=== PATIENT | female | born 1985 | race Caucasian/White ===

== ENCOUNTER 2017-05-31 11:12 | Emergency (ER) | payer OTHER ==
[~2017-05-31] VITALS: Ht 157.5 cm; Wt 66.7 kg
[2017-05-31 11:20] VITALS: BP 116/58
[2017-05-31] MEDS ORDERED: PRED20TA PO (11:38)
--- NOTE | 2017-05-31 11:38 | PHYS DOC ---
Adult General Chief Complaint Chief Complaint: SKIN RASH/ABSCESS HPI HPI Patient is a 32 year old female presents emergency department stating that she has a rash on her face that developed approximately 3 or 4 days ago. She's been taken some Benadryl at night to help with the irritation and itching. She denies any drainage or discharge coming from the site. She does state that she' s been using new laundry detergent new soaps as she is traveling. She also states that she has been camping. She denies fever, chills or any nausea vomiting. She denies any shortness of air. Review of Systems Review of Systems Constitutional: Denies fever or chills [] Eyes: Denies change in visual acuity, redness, or eye pain [] HENT: Denies nasal congestion or sore throat [] Respiratory: Denies cough or shortness of breath [] Cardiovascular: No additional information not addressed in HPI [] GI: Denies abdominal pain, nausea, vomiting, bloody stools or diarrhea [] : Denies dysuria or hematuria [] Musculoskeletal: Denies back pain or joint pain [] Integument: rash denies skin lesions [] Neurologic: Denies headache, focal weakness or sensory changes [] Endocrine: Denies polyuria or polydipsia [] Physical Exam Physical Exam Constitutional: Well developed, well nourished, no acute distress, non-toxic appearance. [] HENT: Normocephalic, atraumatic, bilateral external ears normal, oropharynx moist, no oral exudates, nose normal. [] Eyes: PERRLA, EOMI, conjunctiva normal, no discharge. [] Neck: Normal range of motion, no tenderness, supple, no stridor. [] Cardiovascular:Heart rate regular rhythm, no murmur [] Lungs & Thorax: Bilateral breath sounds clear to auscultation [] Skin: Warm, dry, no erythema, patient with rash noted on her face. It appears just to be a red area no raised areas noted no drainage or discharge noted. Back: No tenderness Extremities: No tenderness, no cyanosis, no clubbing, ROM intact, no edema. [] Neurologic: Alert and oriented X 3, normal motor function, normal sensory function, no focal deficits noted. [] Psychologic: Affect normal, judgement normal, mood normal. [] EKG EKG [] Radiology/Procedures Radiology/Procedures [] Course & Med Decision Making Course & Med Decision Making Pertinent Labs and Imaging studies reviewed. (See chart for details) Spoke with patient regards to using Benadryl 25 mg every 6 hours as needed for itching and irritation. She was instructed this medication will cause drowsiness do not take any be alert and oriented. Recommended keeping the area clean dry and cool. She'll be placed on some prednisone to help with inflammation and redness. Patient was also encouraged to keep the area clean dry and cool also recommended aloe vera lotion on the area. Signs symptoms to return back to emergency department has been provided. Patient agrees with discharge instructions treatment regimens and follow-up recommendations. [] Dragon Disclaimer Dragon Disclaimer This electronic medical record was generated, in whole or in part, using a voice recognition dictation system. Departure Departure Impression: Primary Impression: Contact dermatitis Disposition: HOME, SELF-CARE Condition: STABLE Patient Instructions: Contact Dermatitis, [id number] Additional Instructions: Keep the area clean dry and cool. Benadryl 25 mg every 6 hours as needed for itching and irritation. This medication will cause drowsiness do not take any be alert and oriented. Prednisone 40 mg daily for the next 7 days. Wash area with soap and water. Place Aloe Vera lotion on the area. Follow-up with her primary care physician next 5-7 days. Return back to emergency department sign symptoms of become worse. Scripts Prednisone (PREDNISONE) 20 Mg Tablet 40 MG PO DAILY, #14 TAB Prov: ZAIRA HENRY APRN 05/31/17 ZAIRA HENRY APRN May 31, 2017 11:38
== END 2017-05-31 11:57 | disposition home or self-care (01) ==
LOC: ER 11:12
DX: L25.9 Unspecified contact dermatitis, unspecified cause (principal)
CPT/HCPCS: 99283